=== PATIENT | female | born 1960 | race Caucasian/White ===

== ENCOUNTER → 2020-07-12 08:58 | Outpatient (CLI) | payer OTHER, SELFPAY ==
--- NOTE | 2020-07-12 | DI.US.S_ITS ---
ULTRASOUND OF RIGHT BREAST: 07/12/2020 CLINICAL: 6 month follow-up of cysts. Comparison is made to exams dated: 08/17/2019 ultrasound, 08/17/2019 mammogram, and 07/05/2019 mammogram - [facility]. Color flow and real-time ultrasound of the right breast were performed. Jackson scale images of the real-time examination were reviewed. There is a 0.9 cm x 0.7 cm x 0.6 cm oval cyst with a septated internal wall in the right breast at 10 o'clock posterior depth 8 cm from the nipple. This oval cyst is hypoechoic with internal echoes/debris and posterior acoustic enhancement. This abnormality is not significantly changed. Color flow imaging demonstrates that there is no vascularity present. IMPRESSION: PROBABLY BENIGN The 0.9 cm x 0.7 cm x 0.6 cm oval cyst in the right breast most likely is a complicated cyst and is probably benign. A follow-up right mammogram and a right ultrasound in 6 months is recommended to demonstrate stability. The patient will also be due for screening mammogram of the contralateral breast at that time. Findings and recommendations were conveyed to the patient during today's evaluation. This exam was interpreted at Station ID: [id number]. Electronically Signed By: Nino Ledbetter M.D. aty/:07/12/2020 16:04:41 letter sent: Followup Recommended Ultrasound BI-RADS: 3 Probably benign
== END ==
PROVIDERS: PCP Family Medicine; Referring Provider Family Medicine; Visit Provider Family Medicine
DX: R92.8 Other abnormal and inconclusive findings on diagnostic imaging of breast (principal); N60.01 Solitary cyst of right breast
CPT/HCPCS: 76642

== ENCOUNTER 2024-08-08 22:26 | Emergency (ER) | payer MEDICARE, SELFPAY ==
[2024-08-08 22:30] VITALS: BP 180/99; PULSE 104; RESP 26; TEMP 36.4; O2SAT 100; BMI 33.1
--- NOTE | 2024-08-08 22:35 | EKG_ITS ---
[address] [address] Test Date: 2024-08-08 Pat Name: Mary Thompson Department: Room: Gender: Female [employer]: : 1960 Requested By: Order Number: [id number] Reading MD: Dano Carmona Measurements Intervals [place] Rate: 111 P: 58 NV: 160 QRS: -30 QRSD: 78 T: 49 QT: 360 QTc: 489 Interpretive Statements Sinus tachycardia with occasional premature ventricular complexes Left axis deviation Nonspecific ST abnormality Electronically Signed On 08-10-2024 18:33:19 PST by Dano Carmona
--- NOTE | 2024-08-08 22:42 | DI.RAD.S_ITS ---
PROCEDURE: XR CHEST 1V INDICATIONS: chest pain TECHNIQUE: One view of the chest was acquired. COMPARISON: None. FINDINGS: Surgical changes and devices: None. Lungs and pleura: Lungs are clear. No pleural effusions or pneumothorax. Mediastinum: Mediastinal contours appear normal. Heart size is normal. Bones and chest wall: No suspicious bony lesions. Overlying soft tissues appear unremarkable. IMPRESSION: No acute cardiopulmonary abnormality is seen. Dictated by: Thong Carvalho M.D. on 08/08/2024 at 23:24 Approved by: Thong Carvalho M.D. on 08/08/2024 at 23:24
[2024-08-08 22:45] VITALS: BP 189/95; PULSE 102; RESP 30; O2SAT 99
--- NOTE | 2024-08-08 22:45 | PC.NURSE ---
Patient arrives with her for Chest pain, N/V and confusion. Patient is clutching her mid chest and verbalizes it hurts, my chest. Patient only able to tell me she is in the hospital in [place]. Patient not able to tell me her , her age or what year it is. Dr. Freire at bedside at 22:49. Orders in. When giving morphine for chest pain- see MAR, the patient states I was in pain? What is going on? Will someone tell me why am I here? Her explained that she was in significant pain at home with N/V. 5 minutes later, the patient again asks what is going on, why am I here. Dr. Freire aware of pt's current state. Pt in [facility], call light in reach, her at bedside.
[2024-08-08] MEDS: ONDANSETRON 4 MG/2 ML INJ IV (22:47)
--- NOTE | 2024-08-08 22:58 | ED.CHESTPAIN ---
HPI - Chest Pain General Chief Complaint: Chest Pain Stated Complaint: chest pain not remembering things, vomiting Time Seen by Provider: 08/08/24 22:38 Source: patient and family Mode of arrival: Ambulatory Limitations: no limitations History of Present Illness HPI narrative: 64-year-old female no reported medical history presents with complaint of chest pain starting at about 7:00 p.m. along with nausea vomiting and has been states she was just seemed a little bit confused. He states she has just been a little bit repetitive he has not noticed any slurring of speech no facial droop no difficulty it. He states should probably be capable of driving here but has just seemed a little bit. No fevers reported. Patient describes pain as being sort of substernal epigastric. She denies any radiation. It feels improved after she vomits. Patient denies any lower abdominal or flank pain. She did have several episodes of diarrheal stools earlier today. No reports of dysuria urgency or frequency. No rash or skin changes. Patient has not had similar symptoms in the past. Patient has been do not recall anything preceding this such as eating food or something else. Started about 7:00 a.m. this evening. Patient does not take any daily medications, no prior surgeries. Patient has not seen a physician since she had her last child. Patient is not allergic to any medications. No tobacco, no regular alcohol or recreational drugs. She is accompanied by her . Patient and has been both give history. Related Data Allergies Allergy/AdvReac Type Severity Reaction Status Date / Time No Known Drug Allergies Allergy Verified 08/08/24 22:30 Review of Systems Review of Systems ROS Unobtainable: All systems reviewed & are unremarkable except as noted in HPI and below Patient History Social History Smoking Status: Never smoker Smoking Status: Never smoker Exam Narrative Exam Narrative: GEN: Obese female, alert and oriented, patient appears to be in moderate distress. HEENT: Atraumatic, pupils are equal round reactive to light, extraocular movements are intact, nares are clear, TMs are clear with no fluid, there is no conjunctival pallor. Throat is clear without any exudates, erythema, tonsillar enlargement or uvular deviation, no facial droop HEART: Slightly tachycardic but regular rate and rhythm without murmur, clicks, rubs. No carotid bruits, pulses are equal in upper and lower extremities LUNGS:Lungs clear to auscultation, no wheezes, rales, crackles, chest moves symmetrically, no tachypnea accessory muscle use. ABD:bowel sounds normal, soft, non-tender on exam, no guarding, rebound, rigidity, no masses noted, no hepatosplenomegaly, patient active vomiting in the department with slightly yellow emesis :No CVA tenderness MSCL: Non-tender, no muscle atrophy, muscles strength 5/5 upper and lower extremities, full range of motion, normal gait NEURO:CN 2-12 intact, sensation normal, normal speech. Initial Vital Signs Initial Vital Signs: Vital Signs Temperature 97.5 F L 08/08/24 22:30 Pulse Rate 104 H 08/08/24 22:30 Respiratory Rate 26 H 08/08/24 22:30 Blood Pressure 180/99 H 08/08/24 22:30 Pulse Oximetry 100 08/08/24 22:30 Oxygen Delivery Method Room Air 08/08/24 22:30 Course Orders Ordered: ED Orders 08/08/24 22:29 EKG-12 Lead Stat 08/08/24 22:42 XR chest 1V Stat 08/08/24 22:47 Acetaminophen Stat Complete Blood Count AUTO DIFF Stat Comprehensive Metabolic Panel Stat D Dimer Stat Ethanol (ETOH) Stat Lactate (Lactic Acid) Stat Lipase Stat Magnesium Stat NT-proBNP (BNP-Adult 18+) Stat PTT Partial Thromboplastin Reji Stat Procalcitonin Stat Prothrombin Time INR Stat Salicylate Stat Thyroid Stimulating Hormone Stat Troponin & CK Cardiac Panel Stat 08/08/24 23:00 Ammonia (NH3) Stat 08/08/24 23:10 Covid-19 + FLU A/B + RSV - PCR Stat 08/08/24 23:19 Blood Culture Stat 08/09/24 00:00 CT angio chest abdomen pelvis Stat 08/09/24 00:09 CT head/brain wo con Stat 08/09/24 00:57 Urinalysis and Microscopic Stat Urine Culture Stat Urine Drug Screen, Rapid Stat 08/09/24 00:59 Trop I [Troponin I] Stat Discontinued Medications Aspirin (Aspirin 81 Mg Chew Tab) 324 mg PO NOW ONE Stop: 08/08/24 22:43 Last Admin: 08/08/24 23:13 Dose: 324 mg Documented By: JESUSITA Sodium Chloride (Normal Saline 0.9%) 1,000 mls @ 1,000 mls/hr IV BOLUS ONE Stop: 08/08/24 23:54 Last Infusion: 08/09/24 00:18 Dose: Infused Documented By: Admin: 08/08/24 23:13 Dose: 1,000 mls/hr Documented By: JESUSITA Morphine Sulfate (Morphine 4 Mg/Ml Inj) 4 mg IV NOW ONE Stop: 08/08/24 22:52 Last Admin: 08/08/24 23:03 Dose: 4 mg Documented By: JESUSITA Ondansetron HCl (Ondansetron 4 Mg/2 Ml Inj) 4 mg IV NOW ONE Stop: 08/08/24 22:44 Last Admin: 08/08/24 22:47 Dose: 4 mg Documented By: STACY Ondansetron HCl (Ondansetron 4 Mg Odt Prepack) 1 bottle MISC DIRECTED ONE Stop: 08/09/24 03:21 Last Admin: 08/09/24 03:36 Dose: 1 bottle Documented By: JESUSITA Vital Signs Vital signs: Vital Signs - 8 hr 08/08/24 23:30 08/09/24 00:00 08/09/24 00:11 Pulse Rate 85 87 87 Respiratory Rate 25 H 22 16 Blood Pressure 157/78 H 153/85 H Pulse Oximetry 98 98 97 Oxygen Delivery Method Nasal Cannula Nasal Cannula Nasal Cannula Oxygen Flow Rate 2 2 2 08/09/24 00:12 08/09/24 00:12 08/09/24 00:46 Pulse Rate 86 92 H Respiratory Rate 18 21 Blood Pressure 156/83 H Pulse Oximetry 98 96 Oxygen Delivery Method Nasal Cannula Oxygen Flow Rate 2 08/09/24 01:00 08/09/24 01:00 08/09/24 01:30 Pulse Rate 88 93 H Respiratory Rate 20 19 Blood Pressure 152/77 H Pulse Oximetry 95 98 Oxygen Delivery Method Nasal Cannula Nasal Cannula Oxygen Flow Rate 2 2 08/09/24 01:30 08/09/24 02:00 08/09/24 02:00 Pulse Rate 83 Respiratory Rate 21 Blood Pressure 159/90 H 158/82 H Pulse Oximetry 96 Oxygen Delivery Method Oxygen Flow Rate 08/09/24 02:30 08/09/24 02:30 08/09/24 02:35 Pulse Rate 81 Respiratory Rate 22 Blood Pressure 154/79 H Pulse Oximetry 94 93 Oxygen Delivery Method Nasal Cannula Room Air Oxygen Flow Rate 2 08/09/24 02:40 08/09/24 02:50 08/09/24 02:54 Pulse Rate Respiratory Rate Blood Pressure Pulse Oximetry 92 90 L 89 L Oxygen Delivery Method Room Air Room Air Room Air Oxygen Flow Rate 08/09/24 02:57 08/09/24 03:00 08/09/24 03:00 Pulse Rate 81 Respiratory Rate 20 Blood Pressure 151/82 H Pulse Oximetry 91 95 Oxygen Delivery Method Room Air Room Air Oxygen Flow Rate 08/09/24 03:24 08/09/24 03:30 08/09/24 03:30 Pulse Rate 81 Respiratory Rate 22 Blood Pressure 147/72 H Pulse Oximetry 96 95 Oxygen Delivery Method Room Air Room Air Oxygen Flow Rate MDM - Chest Pain Lab Data 08/08/24 22:47 08/08/24 22:47 Labs: Lab Results 08/08/24 08/08/24 08/08/24 Range/Units 22:47 23:00 23:10 WBC 10.9 (4.5-11.0) X10^3/uL RBC 5.59 H (4.0-5.2) X10^6/uL Hgb 15.1 (12.0-16.0) g/dL Hct 45.5 (36-46) % MCV 81.3 (80-100) fL MCH 26.9 (26-34) PG MCHC 33.1 (30-36) % RDW 14.2 (11.6-14.8) % Plt Count 339 (150-400) X10^3/uL Neut % (Auto) 74.4 (50-75) % Lymph % (Auto) 17.2 L (25-40) % [place] % (Auto) 5.6 (3-14) % Eos % (Auto) 1.6 L (2-4) % Baso % (Auto) 1.2 (0-2) % Neut # (Auto) 8100 H (7752-7572) /uL Lymph # (Auto) 1900 (4888-9009) /uL [place] # (Auto) 600 (0-900) /uL Eos # (Auto) 200 (0-450) /uL Baso # (Auto) 100 (0-100) /uL PT 10.9 (9.4-12.5) SECONDS INR 1.0 (0.9-1.3) APTT 35 (25.1-36.5) SECONDS D-Dimer 592 H (<500) ng/ml Sodium 140 (137-145) mmol/L Potassium 3.8 (3.4-5.1) mmol/L Chloride 107 (98-107) mmol/L Carbon Dioxide 22 (22-32) mmol/L BUN 15 (7-17) mg/dL Creatinine 0.86 (0.52-1.04) mg/dL Estimated GFR > 60 (>60) mL/min BUN/Creatinine Ratio 17.4 (6-22) Glucose 137 H (80-110) mg/dL Lactate 3.0 H (0.7-2.1) mmol/L Calcium 10.1 (8.4-10.2) mg/dL Magnesium 2.2 (1.6-2.3) mg/dL Total Bilirubin 0.4 (0.2-1.3) mg/dL AST 42 H (14-36) IU/L ALT 26 (<35) IU/L Alkaline Phosphatase 80 (38-126) U/L Ammonia < 9 L (9-30) umol/L Total Creatine Kinase 86 (30-135) U/L Troponin I < 0.012 (0.01-0.034) ng/mL NT-Pro-B Natriuret Pep 59 (<125) pg/mL Total Protein 8.2 (6.3-8.2) g/dL Albumin 4.8 (3.5-5.0) g/dL Globulin 3.4 (1.7-4.1) g/dL Albumin/Globulin Ratio 1.4 (1.0-2.8) Lipase 132 (23-300) U/L Procalcitonin 0.036 (<0.5) ng/mL TSH 2.40 (0.47-4.68) uIU/mL Urine Color Urine Appearance Urine pH (4.5-8.0) Ur Specific [place] (1.000-1.035) Urine Protein (Negative) Urine Glucose (UA) (Negative) g/dL Urine Ketones (NEGATIVE) Urine Occult Blood (Negative) Urine Nitrate (Negative) Urine Bilirubin (NEGATIVE) Urine Urobilinogen (0.2) E.U./dL Ur Leukocyte Esterase (NEGATIVE) Urine RBC (0-5/HPF) Urine WBC (0-5/HPF) Ur Squamous Epith Cells (0-5/HPF) Urine Bacteria (None) Ur Culture Indicated? Vol Urine Centrifuged Salicylates < 1.0 (<20) mg/dL U Opiates 300ng/mL cut (Negative) Ur Oxycodone Screen (Negative) Urine Methadone Screen (Negative) Acetaminophen < 10 (10-30) ug/mL Ur Barbiturates Screen (Negative) U Tricyclic Antidepress (Negative) Ur Phencyclidine Scrn (Negative) Ur Amphetamines Screen (Negative) U Methamphetamines Scrn (Negative) Ur MDMA Scrn (Ecstasy) (Negative) U Benzodiazepines Scrn (Negative) Urine Cocaine Screen (Negative) U Marijuana (THC) Screen (Negative) Urine Specific [place] Ethyl Alcohol < 10 ( - 10) mg/dL Ur Creatinine SARS-CoV-2 (PCR) Negative (Negative) Influenza A (RT-PCR) Flu a negative (NEGATIVE) Influenza B (RT-PCR) Flu b negative (NEGATIVE) RSV (PCR) Negative (Negative) 08/09/24 08/09/24 08/09/24 Range/Units 00:57 00:57 00:59 WBC (4.5-11.0) X10^3/uL RBC (4.0-5.2) X10^6/uL Hgb (12.0-16.0) g/dL Hct (36-46) % MCV (80-100) fL MCH (26-34) PG MCHC (30-36) % RDW (11.6-14.8) % Plt Count (150-400) X10^3/uL Neut % (Auto) (50-75) % Lymph % (Auto) (25-40) % [place] % (Auto) (3-14) % Eos % (Auto) (2-4) % Baso % (Auto) (0-2) % Neut # (Auto) (9818-7244) /uL Lymph # (Auto) (0911-1790) /uL [place] # (Auto) (0-900) /uL Eos # (Auto) (0-450) /uL Baso # (Auto) (0-100) /uL PT (9.4-12.5) SECONDS INR (0.9-1.3) APTT (25.1-36.5) SECONDS D-Dimer (<500) ng/ml Sodium (137-145) mmol/L Potassium (3.4-5.1) mmol/L Chloride (98-107) mmol/L Carbon Dioxide (22-32) mmol/L BUN (7-17) mg/dL Creatinine (0.52-1.04) mg/dL Estimated GFR (>60) mL/min BUN/Creatinine Ratio (6-22) Glucose (80-110) mg/dL Lactate 1.6 (0.7-2.1) mmol/L Calcium (8.4-10.2) mg/dL Magnesium (1.6-2.3) mg/dL Total Bilirubin (0.2-1.3) mg/dL AST (14-36) IU/L ALT (<35) IU/L Alkaline Phosphatase (38-126) U/L Ammonia (9-30) umol/L Total Creatine Kinase (30-135) U/L Troponin I < 0.012 (0.01-0.034) ng/mL NT-Pro-B Natriuret Pep (<125) pg/mL Total Protein (6.3-8.2) g/dL Albumin (3.5-5.0) g/dL Globulin (1.7-4.1) g/dL Albumin/Globulin Ratio (1.0-2.8) Lipase (23-300) U/L Procalcitonin (<0.5) ng/mL TSH (0.47-4.68) uIU/mL Urine Color Yellow Urine Appearance Clear Urine pH 7.5 TNP (4.5-8.0) Ur Specific [place] <=1.005 (1.000-1.035) Urine Protein Negative (Negative) Urine Glucose (UA) Negative (Negative) g/dL Urine Ketones Negative (NEGATIVE) Urine Occult Blood Negative (Negative) Urine Nitrate Negative (Negative) Urine Bilirubin Negative (NEGATIVE) Urine Urobilinogen 0.2 (0.2) E.U./dL Ur Leukocyte Esterase Negative (NEGATIVE) Urine RBC None seen (0-5/HPF) Urine WBC None seen (0-5/HPF) Ur Squamous Epith Cells None seen (0-5/HPF) Urine Bacteria None seen (None) Ur Culture Indicated? Cult not indicated Vol Urine Centrifuged 10ml (spun) Salicylates (<20) mg/dL U Opiates 300ng/mL cut Positive H (Negative) Ur Oxycodone Screen Negative (Negative) Urine Methadone Screen Negative (Negative) Acetaminophen (10-30) ug/mL Ur Barbiturates Screen Negative (Negative) U Tricyclic Antidepress Negative (Negative) Ur Phencyclidine Scrn Negative (Negative) Ur Amphetamines Screen Negative (Negative) U Methamphetamines Scrn Negative (Negative) Ur MDMA Scrn (Ecstasy) Negative (Negative) U Benzodiazepines Scrn Negative (Negative) Urine Cocaine Screen Negative (Negative) U Marijuana (THC) Screen Negative (Negative) Urine Specific [place] TNP Ethyl Alcohol ( - 10) mg/dL Ur Creatinine TNP SARS-CoV-2 (PCR) (Negative) Influenza A (RT-PCR) (NEGATIVE) Influenza B (RT-PCR) (NEGATIVE) RSV (PCR) (Negative) Point of Care Testing Glucose POC 138 Urine Dip Bedside Urine Glucose Negative Bedside Urine Bilirubin - Negative Bedside Urine Ketone - Negative Urine Specific [place] 1.005 Bedside Urine Occult Blood - Negative Bedside Urine pH 8.0 Bedside Urine Protein - Negative Bedside Urine Urobilinogen - Negative Bedside Urine Nitrite - Negative Bedside Urine Leukocytes - Negative Esterase Imaging Data Chest x-ray: Radiologist's Impression: Jose Soliz??56??M??10/23/1967 ? Allergy/Adv: No Known Drug Allergies (More??) Close Sacrum and Coccyx X-Ray (Signed) Thong Carvalho - 08/08/24 Lumbar Spine X-Ray (Signed) Thong Carvalho - 08/08/24 Chest X-Ray (Signed) Charlene Ray - 04/13/24 Ribs X-Ray (Signed) Pascual Pantoja - 10/01/21 Lumbar Spine X-Ray (Signed) Carol Dash - 10/01/21 Thoracic Spine X-Ray (Signed) Pascual Pantoja - 10/01/21 Foot X-Ray (Signed) [place] Nickerson - 04/28/21 Foot X-Ray (Signed) Nino Ledbetter - 01/16/21 Launch?[address] [address] XRay Report Signed Patient: Jose Soliz MR#: [id number] : 10/23/1967 Acct:[id number] Age/Sex: 56 / M Date of Service: 08/08/24 Loc: ED ECG Data Attestation: I personally reviewed and interpreted this ECG as follows: Interpretation: Sinus tachycardia rate of 111 CA 160 QRS is 78 QTC of 489, no acute ST elevation depression noted. No prior for comparison. MDM Narrative Medical decision making narrative: 64-year-old female presents with complaint of chest/epigastric pain nausea vomiting that started about 7:00pm this evening with some preceding diarrheal stools earlier. Patient has had excess emesis department slightly tachycardic slightly hypertensive not hypoxic. Patient describes has been a little bit confused although she can answer questions appropriately. She states she does not recall some of the things that her is describing from earlier but she is conversant with no acute neurologic changes other worries. She can tell me her name the year where she is she knows why she was here me history from earlier today about her symptoms. Point of care glucose is 138. Labs labs show white count of 10.9 hemoglobin of 15 platelets of 339, D-dimer is 592 but normal range when age adjusted, INR is 1. Lactate is 3 repeat is normalized to 1.6, electrolytes, BUN and creatinine are normal glucose is 137 patient's ammonia is negative at 9 AST is 42 but bilirubin ALT and alk-phos are negative with a normal lipase. Troponins less than 0.012 with a repeat troponin of less than 0.012 and a BNP of 59. TSH is 2.4 procalcitonin 0.036. ETOH is negative, salicylate and Tylenol are negative. UDS positive for opiates but she received these here in the department before her urine sample. EKG sinus tachycardia rate of 111 Urine shows no major changes. COVID flu and RSV are negative. Patient has a atypical presentation head CT non-con was obtained which negative patient does not really have any headaches. She had epigastric/chest pain with nausea vomiting some reports of earlier diarrhea but also confusion so CT angio chest abdomen pelvis with dissection protocol was ordered which shows no acute change. Contracted gallbladder containing calcified stones no wall thickening or pericholecystic fluid. Diverticulosis without signs of diverticulitis. Bibasilar atelectasis. Patient received Zofran, morphine for pain and fluids. Patient did become hypoxic after morphine was weaned back to room air. Patient has improved here in the department or has been states she was back to her baseline. Discussed potential causes no clear source for her symptoms today was found. Discussed observation but patient and has been defer. He feels she was back to her baseline she does 2 and they would like to return home. We will give contact follow up with primary care discussed strict return precautions. Discussed patient could potentially have recurrence of symptoms and have not found source Discharge Plan Departure Patient Disposition: Home Clinical Impression: Vomiting, Chest pain, Acute alteration in mental status Instructions: DI for Altered Mental Status Activity Restrictions/Additional Instructions: Follow up for with primary care, please call to set up an appointment card with contact information is included with your paperwork. You can take Zofran 1 tablet every 6 hours as needed for nausea. No clear source of your symptoms was not found today and this is somewhat atypical presentation as you have elected not to stay overnight in the hospital please return if you have recurrent symptoms, severe headaches, fevers, recurrent confusion or altered mental status, current chest pain or shortness of breath, persistent vomiting, black or bloody stools, new numbness, tingling or weakness difficulty with speech or other new or concerning changes. Referrals: Jose Sanz DO [Primary Care Provider] - Stand Alone Forms: Patient Portal/API/Survey
[2024-08-08 23:00] VITALS: BP 156/70; PULSE 91; RESP 33; O2SAT 99
[2024-08-08] MEDS: MORPHINE 4 MG/ML INJ IV (23:03)
[2024-08-08 23:08] LABS: Add Manual Diff / Slide Review NO; Basophils Absolute Auto 100 /uL (0-100); Basophils Percent Auto 1.2 % (0-2); Eosinophils Absolute Auto 200 /uL (0-450); Eosinophils Percent Auto 1.6 % (2-4); Hematocrit 45.5 % (36-46); Hemoglobin 15.1 g/dL (12.0-16.0); Lymphocytes Absolute Auto 1900 /uL (1100-4500); Lymphocytes Percent Auto 17.2 % (25-40); Mean Corpuscular HGB Conc 33.1 % (30-36); Mean Corpuscular Hemoglobin 26.9 PG (26-34); Mean Corpuscular Volume 81.3 fL (80-100); Monocytes Absolute Auto 600 /uL (0-900); Monocytes Percent Auto 5.6 % (3-14); Neutrophils Absolute Auto 8100 /uL (1500-7000); Neutrophils Percent Auto 74.4 % (50-75); Platelet Count 339 X10^3/uL (150-400); Red Blood Cell Count 5.59 X10^6/uL (4.0-5.2); Red Cell Distribution Width 14.2 % (11.6-14.8); White Blood Cell Count 10.9 X10^3/uL (4.5-11.0)
[2024-08-08 23:09] VITALS: O2SAT 91
[2024-08-08 23:10] VITALS: O2SAT 98
[2024-08-08] MEDS: SODIUM CHLORIDE 0.9% 1,000 ML 1000 ML IV (23:13)
[2024-08-08] MEDS: ASPIRIN 81 MG CHEW TAB 324 MG PO (23:13)
[2024-08-08 23:20] LABS: Acetaminophen < 10 ug/mL (10-30); Ethanol (ETOH) < 10 mg/dL; Prothrombin Time 10.9 SECONDS (9.4-12.5); Salicylate < 1.0 mg/dL (<20)
[2024-08-08 23:21] LABS: Alanine Aminotransferase 26 IU/L (<35); Albumin 4.8 g/dL (3.5-5.0); Albumin Globulin Ratio 1.4 (1.0-2.8); Alkaline Phosphatase 80 U/L (38-126); Aspartate Aminotransferase 42 IU/L (14-36); BUN Creatinine Ratio 17.4 (6-22); Bilirubin Total 0.4 mg/dL (0.2-1.3); Blood Urea Nitrogen 15 mg/dL (7-17); Calcium 10.1 mg/dL (8.4-10.2); Carbon Dioxide 22 mmol/L (22-32); Chloride 107 mmol/L (98-107); Creatine Kinase 86 U/L (30-135); D Dimer 592 ng/ml (<500); Estimated Glomerular Filt Rate > 60 mL/min (>60); Globulin 3.4 g/dL (1.7-4.1); Glucose 137 mg/dL (80-110); HEMOLYSIS < 15 (0-50); Lipase 132 U/L (23-300); Magnesium 2.2 mg/dL (1.6-2.3); Potassium 3.8 mmol/L (3.4-5.1); Sodium 140 mmol/L (137-145); Total Protein 8.2 g/dL (6.3-8.2)
[2024-08-08 23:22] LABS: Ammonia (NH3) < 9 umol/L (9-30)
[2024-08-08 23:22] LABS: PTT Partial Thromboplastin Tim 35 SECONDS (25.1-36.5)
[2024-08-08 23:30] VITALS: BP 157/78; PULSE 85; RESP 25; O2SAT 98
[2024-08-08 23:33] LABS: NT-proBNP (BNP-Adult 18+) 59 pg/mL (<125); Troponin I < 0.012 ng/mL (0.01-0.034)
[2024-08-08 23:37] LABS: Procalcitonin 0.036 ng/mL (<0.5)
[2024-08-09] VITALS (16 sets, daily range): BP systolic 147–159; BP diastolic 72–90; PULSE 81–93; RESP 16–22; O2SAT 89–98
--- NOTE | 2024-08-09 | DI.CT.S_ITS ---
PROCEDURE: CT ANGIO CHEST ABDOMEN PELVIS INDICATIONS: chest pain, vomiting/diarrhea TECHNIQUE: Precontrast 5 mm thick sections acquired from the lung apices to the iliac crests. After the administration of intravenous contrast, 2.5 mm thick sections again acquired from the lung apices to the iliac crests. Maximum intensity projection (MIP) oblique sagittal and coronal reformats were then acquired. For radiation dose reduction, the following was used: automated exposure control. COMPARISON: None. FINDINGS: Image quality: Diagnostic. AORTA: No aortic aneurysm. No acute aortic syndrome. CHEST: Lower Neck: No enlarged lymph nodes. Thyroid: No thyroid nodules which require sonographic evaluation. Axillae: No enlarged lymph nodes. Chest Wall: Unremarkable. Lungs and Pleura: No pneumothorax or pleural effusions. No consolidation or suspicious nodules. Bibasilar atelectasis. Heart: Heart size is normal. No pericardial effusion. Thoracic Vessels: Pulmonary arteries demonstrate normal size. Mediastinum and [place]: No enlarged lymph nodes. Esophagus: No wall thickening. Small hiatal hernia. ABDOMEN: Liver: No solid mass. Gallbladder: Contracted gallbladder containing calcified stone. No wall thickening or pericholecystic fluid. Biliary ducts: No biliary dilation. Pancreas: No ductal dilation. Spleen: Size is within normal limits. Adrenal Glands: No adrenal nodules. Kidneys and Ureters: No hydronephrosis. No solid mass. No complex renal cystic lesion which requires follow up. Stomach and Bowel: Normal colonic caliber, without significant wall thickening. Normal caliber appendix. Scattered colonic diverticula without acute inflammation. Peritoneum: No abnormal intraperitoneal fluid. No free air. Ventral Wall: No hernia. Abdominal Nodes: No retroperitoneal or mesenteric adenopathy by size criteria. Vessels: Inferior vena cava is normal in size. PELVIS: Pelvic Organs: Unremarkable. Bladder: Unremarkable. Pelvic Nodes: No enlarged lymph nodes. Miscellaneous: No inguinal hernias are seen. Bones: Degenerative changes of the visualized spine without acute vertebral body compression fracture. IMPRESSION: No aortic aneurysm or evidence of acute aortic syndrome. Colonic diverticulosis without CT evidence of acute diverticulitis. Bibasilar atelectasis. Approved by: Ling Leos M.D.,Ph.D. on 08/09/2024 at 1:52
[2024-08-09 00:06] LABS: Influenza A - CEPHEID Flu A NEGATIVE (NEGATIVE); Influenza B - CEPHEID Flu B NEGATIVE (NEGATIVE); Respiratory Syncytial Virus Negative (Negative)
--- NOTE | 2024-08-09 00:09 | DI.CT.S_ITS ---
PROCEDURE: CT HEAD/BRAIN WO CON INDICATIONS: confused, vomiting TECHNIQUE: Noncontrast 4.5 mm thick angled axial sections acquired from the foramen magnum to the vertex, with coronal and sagittal reformats. For radiation dose reduction, the following was used: automated exposure control, adjustment of mA and/or kV according to patient size. COMPARISON: None. FINDINGS: Image quality: Diagnostic. CSF spaces: Basal cisterns are patent. No extra-axial fluid collections. Ventricles are normal in size and shape. Brain: No midline shift. No intracranial masses or hemorrhage. Jackson-white matter interface is normal. Skull and face: Calvarium and visualized facial bones are intact, without suspicious lesions. Sinuses: Visualized sinuses and mastoids are clear. IMPRESSION: No acute intracranial pathology. Approved by: Ling Leos M.D.,Ph.D. on 08/09/2024 at 1:41
[2024-08-09 00:15] LABS: COVID-19 CEPHEID 4-PLEX PCR Negative (Negative)
--- NOTE | 2024-08-09 00:16 | PC.NURSE ---
Patient now able to tell me she is in the hospital, in [place], her , and her age. unable to tell me the situation.
[2024-08-09 00:40] LABS: Reflexed Lactate in 2 Hours Y
[2024-08-09 01:08] LABS: Appearance Urine UA CLEAR; Bilirubin Urine UA NEGATIVE (NEGATIVE); Color Urine UA YELLOW; Glucose Urine UA NEGATIVE (Negative); Ketones Urine UA NEGATIVE (NEGATIVE); Leukocyte Esterase Urine UA NEGATIVE (NEGATIVE); Nitrite Urine UA NEGATIVE (Negative); Occult Blood Urine UA NEGATIVE (Negative); Protein Urine UA NEGATIVE (Negative); Specific Gravity Urine UA <=1.005 (1.000-1.035); Urobilinogen Urine UA 0.2 E.U./dL (0.2)
[2024-08-09 01:09] LABS: pH Urine UA 7.5 (4.5-8.0)
[2024-08-09 01:13] LABS: UR Morphine/Opiate cutoff 300 Positive (Negative); Urine Amphetamines Negative (Negative); Urine Barbiturates Negative (Negative); Urine Benzodiazepines Negative (Negative); Urine Cocaine Negative (Negative); Urine MDMA Negative (Negative); Urine Methadone Negative (Negative); Urine Methamphetamines Negative (Negative); Urine Oxycodone Negative (Negative); Urine Phencyclidine Negative (Negative); Urine Tetrahydrocannabinol Negative (Negative); Urine Tricyclic Antidepressant Negative (Negative)
[2024-08-09 01:14] LABS: Bacteria Urine None Seen; Culture Indicated Urine Cult Not Indicated; RBC Urine None Seen (0-5/HPF); Squamous Epithelial Cell Urine None Seen (0-5/HPF); Urine Volume 10mL (spun); WBC Urine None Seen (0-5/HPF)
[2024-08-09 01:16] LABS: Lactate 2HR (Lactic Acid Rflx) 1.6 mmol/L (0.7-2.1)
[2024-08-09 01:29] LABS: Troponin I < 0.012 ng/mL (0.01-0.034)
[2024-08-09] MEDS: ONDANSETRON 4 MG ODT PREPACK 1 BOTTLE MISC (03:36)
== END 2024-08-09 03:47 | disposition home or self-care (01) ==
PROVIDERS: Emergency Provider Emergency Medicine; PCP Family Medicine
DX: R07.9 Chest pain, unspecified (principal); R10.13 Epigastric pain; R11.2 Nausea with vomiting, unspecified; R41.82 Altered mental status, unspecified; R19.7 Diarrhea, unspecified; R00.0 Tachycardia, unspecified; I10 Essential (primary) hypertension
CPT/HCPCS: 0241U; 36415; 70450; 71045; 71275; 74174; 80053; 80305; 80320; 80329; 81001; 81003; 82140; 82550; 82962; 83605; 83690; 83735; 83880; 84145; 84443; 84484; 85025; 85379; 85610; 85730; 87040; 87086; 93005; 96361; 96374; 96375; 99284; 99285; G0480; J2270; J2405; Q9967

== ENCOUNTER → 2025-06-18 16:44 | Outpatient (CLI) | payer MEDICARE, SELFPAY ==
--- NOTE | 2025-06-18 16:47 | DI.MG.S_ITS ---
MM screening mammo BI: 06/18/2025. BI-RADS: 1
== END ==
DX: Z12.31 Encounter for screening mammogram for malignant neoplasm of breast (principal)
CPT/HCPCS: 77063; 77067